=== PATIENT | male | born 1995 | race Caucasian/White ===

== ENCOUNTER 2017-03-22 23:34 | Emergency (ER) | payer SELFPAY ==
[2017-03-23 00:25] LABS: #Eosinphils 0.2 thou/uL (0.0-0.7); #Lymphocytes 2.7 thou/uL (1.20-3.40); #Monocytes 0.6 thou/uL (0.11-0.59); %Basophils 0.7 % (0.0-1.0); %Eosinophils 2.8 % (0.0-10.0); %Monocytes 9.6 % (0.0-10.0); Hematocrit 48.3 % (42.0-52.0); Mean Platelet Volume 8.1 fL (7.4-10.4); Red Blood Cell (RBC) Count 5.34 mill/uL (4.70-6.10); White Blood Cell (WBC) Count 6.6 thou/uL (4.8-10.8)
[2017-03-23 00:43] LABS: ALT (SGPT) 18 U/L (8-55); AST (SGOT) 22 U/L (5-34); Alkaline Phosphatase 80 U/L (40-150); Anion Gap 12 mmol/L (10-20); BUN (Urea Nitrogen) 16 mg/dL (8.9-20.6); Bilirubin, Total 0.4 mg/dL (0.2-1.2); CK (CPK) 187 U/L (30-200); Calc. Creatinine Clearance 0 mL/min (70-130); Calcium 9.7 mg/dL (7.8-10.44); Carbon Dioxide 31 mmol/L (22-29); Chloride 101 mmol/L (98-107); Estimated GFR-MDRD Greater than 90; Globulin 2.7 g/dL (2.4-3.5); Protein, Total 7.2 g/dL (6.0-8.3)
[2017-03-23 00:46] LABS: Troponin I Less than 0.010 ng/mL (< 0.028)
--- NOTE | 2017-03-23 10:39 | RAD ---
PORTABLE CHEST: HISTORY: Chest pain. FINDINGS: Heart size and mediastinum within normal limits. The lungs are clear of infiltrates. No signs of ef fusions. No bony findings. IMPRESSION: No active intrathoracic disease. POS: [facility]
--- NOTE | 2017-03-29 15:35 | EKG ---
Test Reason : CHEST PAIN Blood Pressure : / mmHG Vent. Rate : 064 BPM Atrial Rate : 064 BPM P-R Int : 150 ms QRS Dur : 092 ms QT Int : 378 ms P-R-T Axes : 068 070 044 degrees QTc Int : 389 ms Normal sinus rhythm Normal ECG Confirmed by SHU BUSTAMANTE D.O. ([id number]), multimedia editor RAQUEL VITALE ([id number]) on 03/29/2017 3:35:23 PM Referred By: Confirmed By:SHU BUSTAMANTE D.O.
== END 2017-03-23 02:34 | disposition home or self-care (01) ==
LOC: ERS 23:34
DX: R07.89 Other chest pain (principal)
CPT/HCPCS: 36415; 71010; 80053; 82553; 84484; 85025; 93005